=== PATIENT | female | born 1995 | race Caucasian/White ===

== ENCOUNTER 2017-03-13 20:29 | Emergency (ER) | payer BC ==
[~2017-03-13] VITALS: Ht 170.2 cm; Wt 84.0 kg
[~2017-03-13 20:29] MED LIST: SULF1TAB42 PO
--- OUTSIDE RECORDS SUMMARY | 2017-03-13 20:33 | XMS REPORT | Continuity of Care Document ---
Author Author [facility] Organization [facility] Address Unknown Phone Unavailable Support Name Relationship Address Phone ARLENADRIANNE MEADOWS APRN Caregiver [address] [place] [address] Unavailable ELEANOR GEE DO Caregiver Unknown Unavailable HERMINIO MATHIAS Next Of Kin [address] [place] [address] Insurance Providers Guarantor Shannon Mathias Address [address] [place] [id number] Email [email or web address] Payer [facility] Policy Number [id number] Subscriber's Name Herminio Mathias A Relationship 19 Child Group Number [id number] Chief Complaint and Reason for Visit Chief Complaint Upper Extremity Problem Reason for Visit [id number] Problems Active Problems Medical Problem Onset Date Status Cough Unknown Acute Dehydration, mild Unknown Acute Past Problems Medical Problem Onset Date Carbuncle and furuncle of trunk Unknown Chlamydia infection Unknown Chlamydia infection Unknown Cough Unknown Dehydration, mild Unknown Dysmenorrhea Unknown Viral illness Unknown Viral pharyngitis Unknown Medications Current Home Medications Medication Dose Units Route Directions Days Qty Instructions Start Date Sulfamethoxazole/Trimethoprim (Bactrim Ds Tablet) 1 Each Tablet 1 Tab Oral Twice A Day 10 Days 20 Tablet Take 1 tablet, by mouth, 2 times a day. Past Home Medications Medication Directions Ordered Status Control , 06/02/13 Discontinued Social History Social History Problem Response Recorded Date/Time Onset Date Status Hx Substance Use No 01/01/2017 11:48pm Not Applicable Not Applicable Hx Alcohol Use No 01/01/2017 11:48pm Not Applicable Not Applicable Has the pt used tobacco in the last 12 months Yes 09/08/2016 8:07pm Not Applicable Not Applicable Hospital Discharge Instructions No hospital discharge instructions. Plan of Care Discharge Date 02/28/17 7:04pm Disposition 01 DISCHARGED HOME, SELF-CARE Condition at Discharge Stable Instructions/Education Provided MRSA (Methicillin Resistant Staphylococcus Aureus) (ED) Prescriptions See Medication Section Referrals ELEANOR GEE DO Additional Instructions/Education Discussed with patient nature carbuncle. Cannot exclude an ingrown hair. No surrounding cellulitis. Warm packs 20 minutes 2 or 3 times a day. May utilize Tylenol or ibuprofen per package instructions for comfort. Start Bactrim DS 1 by mouth twice a day 10 days. Side effects discussed. If carbuncle resolve over the next 4-5 days I would recommend follow-up. If she develops fever or feels like it's progressing on antibiotics along with PCP. If it becomes more flocculent would recommend follow-up with PCP for possible I&D. Questions and concerns were answered. Functional Status No functional status results. Allergies, Adverse Reactions, Alerts Allergen Type Severity Reaction Status Last Updated No Known Drug Allergies Allergy Unknown NONE Active 02/28/17 Immunizations Query Response on File Recorded Date/Time Hx Influenza Vaccination Y ABOUT 4 YEARS AGO. 09/08/16 8:07pm Hx Pneumococcal Vaccination N UNKNOWN 09/08/16 8:07pm Hx Influenza Vaccination Y ABOUT 4 YEARS AGO. 09/08/16 8:07pm Influenza Vaccine Hx 2016 02/28/17 6:49pm Vital Signs Acute Vital Signs Vital Response Date/Time Temperature (Fahrenheit) 97.3 deg F (96.8 - 99.1) 02/28/2017 6:41pm Temperature (Calculated Celsius) 36.78288 degrees C (36.0 - 37.3) 02/28/2017 6:41pm Pulse Rate (adult) 94 bpm (60 - 100) 02/28/2017 6:41pm Respiratory Rate 16 breaths/min (10 - 20) 02/28/2017 6:41pm O2 Sat by Pulse Oximetry 100 % (90 - 100) 02/28/2017 6:41pm Blood Pressure 110/78 mm Hg 02/28/2017 6:41pm Height (Feet) 5 feet 01/01/2017 11:41pm Height (Inches) 66.00 inches 02/28/2017 6:41pm Weight (Kilograms) 84.600 kg 02/28/2017 6:41pm Body Mass Index (BMI) 30.0 02/28/2017 6:41pm Results Laboratory Results Test Name Result Units Flags Reference Collection Date/Time Result Date/ Time Comments Urine Collection Type CLEANCATCH-MIDSTREAM 01/02/2017 12:14am 01/02 12:25am Urine Color YELLOW YELLOW 01/02/2017 12:14am 01/02/2017 12:25am Urine Turbidity CLEAR CLEAR 01/02/2017 12:14am 01/02/2017 12:25am Urine Specific [place] 1.015 1.015-1.025 01/02/2017 12:14am 2016 12:25am Urine pH 8.5 H 5.0-8.0 01/02/2017 12:14am 01/02/2017 12:25am Urine Leukocyte Esterase NEGATIVE NEGATIVE 01/02/2017 12:14am 2016 12:25am Urine Nitrite NEGATIVE NEGATIVE 01/02/2017 12:14am 01/02/2017 12: 25am Urine Protein TRACE A NEGATIVE 01/02/2017 12:14am 01/02/2017 12:25am Urine Glucose (UA) NEGATIVE NEGATIVE 01/02/2017 12:14am 01/02/2017 12 :25am Urine Ketones NEGATIVE NEGATIVE 01/02/2017 12:14am 01/02/2017 12: 25am Urine Urobilinogen 0.2 EU/DL NORMAL 01/02/2017 12:14am 01/02/2017 12: 25am Urine Bilirubin NEGATIVE NEGATIVE 01/02/2017 12:14am 01/02/2017 12: 25am Urine Blood 3+ A NEGATIVE 01/02/2017 12:14am 01/02/2017 12:25am Urine WBC NONE SEEN /HPF 0-5 01/02/2017 12:14am 01/02/2017 12:31am Urine RBC 20-30 /HPF H 0-3 01/02/2017 12:14am 01/02/2017 12:31am Urine Bacteria NONE SEEN NEGATIVE 01/02/2017 12:14am 01/02/2017 12: 31am Urine Culture Indicated CULT NOT INDICATED 01/02/2017 12:14am 01/02 12:31am Procedures Procedure Status Date Provider(s) Urinalysis auto w/scope Completed 01/01/17 Urine test Completed 01/01/17 Ther/proph/diag inj sc/im Completed 01/01/17 Emergency dept visit Completed 01/01/17 [id number]"INJECTION, KETOROLAC TROMETHAMINE, PER 15 MG" Completed 01/01/17 Encounters Encounter Location Arrival/Admit Date Discharge/Depart Date Attending Provider Departed Emergency Room [facility] 02/28/17 6:40pm 02/28/17 7: 04pm ADRIANNE MCKINLEY APRN Departed Emergency Room [facility] 01/01/17 11:36pm 01/02/17 1: 11am LAUREN VEGA DO Recent Diagnosis
[2017-03-13 20:48] VITALS: Ht 170.2 cm; Wt 84.0 kg
[2017-03-13] MEDS ORDERED: TETANUS,DIPHTH,a PERTUS (Tdap) 0.5 ML VIAL IM ONE (21:00)
--- NOTE | 2017-03-13 21:00 | NUR ---
LAB FILLER WIPER HERE TO DRAW BLOOD
[2017-03-13] MEDS ORDERED: NO MEDS (21:03)
--- NOTE | 2017-03-13 21:11 | ERPDOC ---
Departure Disposition Decision Date: March 13, 2017 Disposition Decision Time: 22:34 Disposition: 65 TO PSYCH HOSP/UNIT Impression Impression Impression: Primary Impression: Suicidal ideation Condition: Stable Seen By: Mid-level only Referrals: ELEANOR GEE DO (Family) Patient Instructions: Suicide Prevention for Adults (ED), Depression (ED) Problems/Meds/Labs Reviewed?: Yes Medications reviewed and manag: Yes Follow up care ordered?: Yes Mental Status: Alert, Oriented HPI - Psychosocial General Chief Complaint: Suicide Ideation/Attempt Stated Complaint: LEFT ARM LACERATION Time Seen by MD: 20:36 Source: patient Exam Limitations: no limitations HPI - Psychosocial Initial Comments Patient comes into the ER accompanied by her roommate with reports depression and suicidal ideation. Patient recently today had self inflicted cutting to her let forearm . States wanted to not continue living due to issues with her boyfriend who see states is her ex boyfriend. Patients roommate was awakened by the patient after she had her self She states she is depression due to break up with her boyfriend Patient denies hospitalization regarding suicidal ideation, but does state that she has had a counsellor in the past from [place] but does not recall her name. [facility] she is supposed to be on meds for depression but took herself off those meds in November [facility] occasional alcohol use but not excessive; drank a wine cooler around [address] drug use. 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 Occurred At: home Onset: Rapid Duration: 1-3 hrs 1 - numerous superfical lacs to inner left arm without active bleeding Associated Symptoms: anxiety, injury, suicidal ideation Hx of Similar Symptoms: Yes Allergies: Coded Allergies: No Known Drug Allergies (Unverified Allergy, Unknown, NONE, 02/28/17) Past History Patient Surgical History Negative Past Medical History Pt denies signifigant PMH Respiratory: other Psychological: anxiety, depression Surgical History General: other Family History Family PMH: FOUND: CHF, diabetes Vaccines Hx Influenza Vaccination: Yes (ABOUT 4 YEARS AGO.) Hx Pneumococcal Vaccination: No (UNKNOWN) Social History # of Packs/Tins per Day: 1.0 # of Years: 2 Second Hand Exposure: Yes Substance Use Type: does not use Alcohol Intake: none Marital Status: Single Current Occupational Status: student Review of Systems Constitutional Constitutional: see HPI, DENIES: chills, dizziness, fever Eyes General: DENIES: burning, exudate, see HPI Lids/Accessories: DENIES: erythema, swelling Vision: DENIES: acuity, change in color ENMT Ears: see HPI, DENIES: erythema Hearing: DENIES: tinnitus Balance: DENIES: vertigo Mouth/Throat: DENIES: see HPI Physical Exam General General Nourishment: well nourished, well developed, appears stated age, no acute distress Vitals and Pain First Documented Vital Signs Date Time Temp Pulse Resp B/P Pulse Ox O2 Delivery O2 Flow Rate FiO2 03/13/17 20:48 98.8 104 18 150/88 97 Room Air Weight: Kilograms: Height (feet): 5 Height (inches): 66.00 Triage Pain Scale: Normal Exams: Head: Normocephalic w/o trauma Eyes: Pupils are PERRLA w/ EOMI, No scleral icterus, irritation, or foreign bodies noted Fundi: Disks flat and sharp, No hemorrhages, or AV nicking noted ENMT: No facial trauma, nasal exudates, pharyngeal erythema, or exudates are noted Dental: No fractured, loose, or missing teeth noted Neck: Full range of motion, without adenopathy, JVD, bruits or thyromegaly Chest/Resp: Clear all quick CV: Regular rate and rhythm, without murmur or gallop, Pulses 2+ all extremities, capillary refill, <2 seconds all ext. Abdomen: soft, non-tender, non-distended, no hepatosplenomegaly, masses or bruits noted : Vulva without rashes Lymphatic: No lymphadenopathy Integumentary: No rashes Neurologic: Patient is alert Psychiatric: Patient exhibits Integumentary (brief) Integumentary Brief: FOUND: dry, other (numerous superficial self inflicted lacs to the inner aspect of left arm. No sutures indicated ), pink, warm Differential Diagnoses Considering: Anxiety, Bipolar, Borderline PD, Depression, Acute Psychosis, Suicidal Attempt, Suicidal Gesture, Suicidal Ideation Progress Results/Orders Orders Procedure Category Date Status Time Cbc W/Auto LAB 03/13/17 Complete Diff-Reflex Manual 20:55 Bmp - Basic Metabolic LAB 03/13/17 Complete Panel 20:55 Ethanol LAB 03/13/17 Complete 20:55 Drug Screen LAB 03/13/17 Complete Urine-Test At [facility] 20:55 Acetaminophen LAB 03/13/17 Complete 20:55 Salicylate LAB 03/13/17 Complete 20:55 Ua, Dip Wreflex LAB 03/13/17 Complete [employer] 20:55 Tsh - Thyroid Stim LAB 03/13/17 Complete Hormone 20:55 LAB 03/13/17 Complete Qualitative, Urine 20:55 Tetanus,Diphth,A PHA 03/13/17 Logged Pertus (Tdap) (Adacel) 21:00 Neomycin/Polymyxin/Bacitracin PHA 03/13/17 Complete (Neosporin 21:30 Lab Results Laboratory Tests Test 03/13/17 21:04 03/13/17 21:05 03/13/17 21:38 03/13/17 22:01 Turbidity < 20 Sodium Level 145MEQ/L Potassium Level 3.6MEQ/L Chloride Level 106MEQ/L Carbon Dioxide Level 26MEQ/L Anion Gap 13MEQ/L Blood Urea Nitrogen 8.0MG/DL Creatinine 0.9MG/DL Glomerular Filtration Rate Calc 80 BUN/Creatinine Ratio 9RATIO Glucose Level 89MG/DL Calculated Osmolality 276MOSM/KG Calcium Level 9.4MG/DL Icterus Index < 2 Thyroid Stimulating Hormone (TSH) 2.16MIU/L Chemistry Specimen Hemolysis < 15 Salicylates Level < 1.0MG/DL Acetaminophen Level < 10UG/ML Alcohol, Quantitative <10MG/DL White Blood Count 9.4T/MM3 Red Blood Count 4.85M/MM3 Hemoglobin 15.0GM/DL Hematocrit 43.7% Mean Corpuscular Volume 90.1UM3 Mean Corpuscular Hemoglobin 30.9UUG Mean Corpuscular Hemoglobin Concent 34.3GM/DL RDW Standard Deviation 39.4FL Platelet Count 359T/MM3 Mean Platelet Volume 10.3UM3 Immature Granulocyte % (Auto) 0.2% Neutrophils (%) (Auto) 70.7% Lymphocytes (%) (Auto) 23.1% Monocytes (%) (Auto) 5.2% Eosinophils (%) (Auto) 0.3% Basophils (%) (Auto) 0.5% Absolute Immature Granulocyte (auto 0.02T/MM3 Absolute Neutrophils (auto) 6.7T/MM3 Absolute Lymphocytes (auto) 2.2T/MM3 Absolute Monocytes (auto) 0.5T/MM3 Absolute Eosinophils (auto) 0.0T/MM3 Absolute Basophils (auto) 0.1T/MM3 Urine Collection Type Voided-not cc-midstr Urine Color Yellow Urine Turbidity Clear Urine pH 8.0 Urine Specific [place] <=1.005 Urine Protein Negative Urine Glucose (UA) Negative Urine Ketones Negative Urine Blood Negative Urine Nitrite Negative Urine Bilirubin Negative Urine Urobilinogen 0.2EU/DL Urine Leukocyte Esterase Negative Urinalysis Comment Microscopic not ind. Urine Test Negative Urine Opiates Screen NegativeNG/ML Urine Oxycodone Screen NegativeNG/ML Urine Methadone Screen NegativeNG/ML Urine Propoxyphene Screen NegativeNG/ML Urine Barbiturates Screen NegativeNG/ML Urine Tricyclic Antidepressants NegativeNG/ML Urine Phencyclidine Screen NegativeNG/ML Urine Amphetamines Screen NegativeNG/ML Urine Methamphetamines Screen NegativeNG/ML Urine Benzodiazepines Screen NegativeNG/ML Urine Cocaine Screen NegativeNG/ML Urine Cannabinoids Screen NegativeNG/ML Lab Scanned Report REFERENCE [id number] Medications Current ED Medications Diphtheria/ Tetanus/Acell Pertussis (Adacel) 0.5 ml O ONCE IM Last administered on 03/13/17t 21:13; Start 03/13/17 at 21:00; Stop 03/13/17 at 21:01; Status UNV Neomycin/ Polymyxin/ Bacitracin (Neosporin) 2 applic O ONCE TOP ; Start at 21:30; Stop 03/13/17 at 21:31; Status DC Progress Progress Patient has remained cooperative throughout ER stay and is willing to seek inpatient therapy at [place]. FATUMA NEVILLE APRN March 13, 2017 21:11
[2017-03-13 21:19] LABS: ACETAMINOPHEN < 10 UG/ML (10-30); ANION GAP 13 MEQ/L (5-15); BUN/CREATININE RATIO 9 RATIO (6-26); CALCIUM 9.4 MG/DL (8.4-10.2); CHLORIDE 106 MEQ/L (98-107); CO2 - CARBON DIOXIDE 26 MEQ/L (22-30); CREATININE 0.9 MG/DL (0.7-1.2); ETHANOL <10 MG/DL (<10); GLOMERULAR FILTRATION RATE 80; GLUCOSE 89 MG/DL (65-110); POTASSIUM 3.6 MEQ/L (3.6-5); SALICYLATE < 1.0 MG/DL (2-20); SODIUM 145 MEQ/L (134-144)
[2017-03-13 21:26] LABS: BASOPHILS # (AUTO) 0.1 T/MM3 (0-0.2); BASOPHILS % (AUTO) 0.5 % (0-2); EOSINOPHILS % (AUTO) 0.3 % (0-4); HCT - HEMATOCRIT 43.7 % (36-46); IMMATURE GRANULOCYTE # (AUTO) 0.02 T/MM3 (0.00-0.03); IMMATURE GRANULOCYTE % (AUTO) 0.2 % (0.0-0.5); LYMPHOCYTES # (AUTO) 2.2 T/MM3 (1-4.8); LYMPHOCYTES % (AUTO) 23.1 % (23-45); MEAN CORPUSCULAR HGB 30.9 UUG (26-34); MEAN CORPUSCULAR HGB CONC(MCHC 34.3 GM/DL (31-37); MEAN CORPUSCULAR VOLUME 90.1 UM3 (80-100); MEAN PLATELET VOLUME 10.3 UM3 (9.4-12.4); MONOCYTES # (AUTO) 0.5 T/MM3 (0-0.8); MONOCYTES % (AUTO) 5.2 % (0-9.0); NEUTROPHILS #(AUTO)-ABSOLUTE 6.7 T/MM3 (1.8-7.7); NEUTROPHILS % (AUTO) 70.7 % (33-66); RED BLOOD COUNT 4.85 M/MM3 (4.00-5.20); WBC - WHITE BLOOD COUNT 9.4 T/MM3 (4.5-11.0)
[2017-03-13] MEDS ORDERED: NEOMYCIN/POLYM/BACITR OINT PACKET TOP ONE (21:30)
[2017-03-13 21:43] LABS: BLOOD, URINE NEGATIVE (NEGATIVE); COLOR,URINE YELLOW (YELLOW); LEUKOCYTE ESTERASE ,URINE NEGATIVE (NEGATIVE); NITRITE,URINE NEGATIVE (NEGATIVE); UROBILINOGEN,URINE 0.2 EU/DL (NORMAL)
[2017-03-13 21:52] LABS: AMPHETAMINE SCREEN,URINE NEGATIVE; BARBITURATE SCREEN,URINE NEGATIVE; BENZODIAZEPINES SCREEN,URINE NEGATIVE; CANNABINOID SCREEN,URINE NEGATIVE; COCAINE SCREEN,URINE NEGATIVE; METHADONE SCREEN, URINE NEGATIVE; METHAMPHETAMINE SCREEN, URINE NEGATIVE; OPIATE SCREEN,URINE NEGATIVE; PHENCYCLIDINE SCREEN,URINE NEGATIVE; TRICYCLIC ANTIDEPRESSANT,URINE NEGATIVE
[2017-03-13 22:12] LABS: THYROID STIM HORMONE-TSH 2.16 MIU/L (0.47-4.68)
--- NOTE | 2017-03-13 22:25 | NUR ---
REPORT REPORT GIVEN TO BETTY KIM RN FROM [facility]
--- NOTE | 2017-03-13 22:45 | NUR ---
DISPATCH CALLED DISPATCH FOR EMS TRANSFER
[2017-03-13 22:54] VITALS: BP 123/75; PULSE 83; RESP 18; TEMP 98.1; O2SAT 97
--- NOTE | 2017-03-13 22:54 | NUR ---
EMS REPORT EMS STAFF ARE GIVEN REPORT.
--- NOTE | 2017-03-13 22:55 | NUR ---
TRANSFER COMPLETE PT IS AMBULATORY WITH EMS STAFF TO AMBULANCE. FRIENDS SAY GOODBYE. PT IS COOPERATIVE
== END 2017-03-13 22:55 ==
LOC: ED 20:29
DX: R45.851 Suicidal ideations (principal); F32.9 Major depressive disorder, single episode, unspecified; S51.812A Laceration without foreign body of left forearm, initial encounter; X78.9XXA Intentional self-harm by unspecified sharp object, initial encounter; Y93.89 Activity, other specified; Y92.009 Unspecified place in unspecified non-institutional (private) residence as the place of occurrence of the external cause; Y99.8 Other external cause status
CPT/HCPCS: 36415; 80048; 80306; 80307; 81003; 81025; 84443; 85025; 90471; 90715